=== PATIENT | female | born 1950 | race Caucasian/White ===

== ENCOUNTER → 2021-07-29 | Outpatient (CLI) | payer MEDICARE, OTHER ==
[~2021-07-29] MED LIST: DIATRIZOATE MEGL/DIATRIZOA SOD 30 ML BTL PO ONE; IOPAMIDOL 370 MG/ML 200 ML INFUS..BTL INJ ONE; SODIUM CHLORIDE 0.9% 50ML 50 ML ONE; SYNTHROID25 MCG PO; ZESTRIL20 MG PO
[2021-07-29 16:04] LABS: CREATININE, SERUM 1.05 mg/dL (0.57-1.11)
== END ==
LOC: CT 15:10
PROVIDERS: ATTEND Family Medicine
DX: R10.0 Acute abdomen (principal); K44.9 Diaphragmatic hernia without obstruction or gangrene
CPT/HCPCS: 36415; 74177; 82565; 84520; Q9967

== ENCOUNTER → 2021-08-07 | Outpatient (CLI) | payer MEDICARE, OTHER ==
[~2021-08-07] MED LIST changes: -DIATRIZOATE MEGL/DIATRIZOA SOD 30 ML BTL PO ONE; -IOPAMIDOL 370 MG/ML 200 ML INFUS..BTL INJ ONE; +LORAZEPAM INJ 2 MG/ML VIAL ONE; -SODIUM CHLORIDE 0.9% 50ML 50 ML ONE
== END ==
LOC: MRI 08:07
PROVIDERS: ATTEND Family Medicine
DX: M54.50 Low back pain, unspecified (principal)
CPT/HCPCS: 72148; J2060

== ENCOUNTER 2021-08-20 07:42 | Observation (INO) | payer MEDICARE, OTHER ==
[2021-08-18 14:56] LABS: BASOPHILS % 0.8 % (0.0-1.0); EOSINOPHILS # (AUTO) 0.2 (0.0-0.4); EOSINOPHILS % 4.1 % (0.0-6.0); HEMATOCRIT 29.7 % (34.2-44.1); HEMOGLOBIN 9.8 g/dL (12.0-16.0); LYMPHOCYTES # (AUTO) 1.2 (1.0-3.2); LYMPHOCYTES % 23.3 % (18.0-39.1); MONOCYTES # (AUTO) 0.6 (0.2-0.8); NEUTROPHILS # (AUTO) 3.2 (2.1-6.9); NEUTROPHILS % 59.4 % (38.7-80.0); PLATELET COUNT 278 x10e3/uL (140-360); RED BLOOD COUNT 3.16 x10e6/uL (3.6-5.1); RED CELL DISTRIBUTION WIDTH 13.9 % (11.7-14.4)
[2021-08-18 15:01] LABS: INR 0.9; PARTIAL THROMBOPLASTIN TIME 25.6 seconds (23.8-35.5); PROTHROMBIN TIME 12.8 seconds (11.9-14.5)
[2021-08-18 15:06] LABS: CALCIUM 8.6 mg/dL (8.4-10.2); CREATININE, SERUM 1.23 mg/dL (0.57-1.11)
[~2021-08-20] VITALS: Ht 170.2 cm; Wt 75.7 kg
[~2021-08-20 07:42] MED LIST changes: +AMBIEN5 MG PO; +HYDROCODON-ACE1 EAC9 PO; -LORAZEPAM INJ 2 MG/ML VIAL ONE; +PREMARIN0.625 MG PO
[2021-08-20] MEDS ORDERED: THROMBIN FOR SOLN 5,000 UNIT VIAL ONE (08:46)
[2021-08-20] MEDS ORDERED: Vancomycin IV 1 GM VIAL ONE (08:46)
[2021-08-20] MEDS ORDERED: LIDOCAINE 2%/ EPINEPHRINE 20ML MDV ONE (08:46)
[2021-08-20] MEDS ORDERED: SODIUM CHLORIDE 0.9% 50ML 100 ML ONE (09:16)
[2021-08-20] MEDS ORDERED: HYDROCODON-ACE1 EA12 PO (11:33)
[2021-08-20] MEDS ORDERED: Morphine 4mg Syringe 4 MG/ML INJ IM PRN (11:45)
[2021-08-20] MEDS ORDERED: MAGNESIUM/ALUMINUM/SIMETHICONE 30 ML UDC PO PRN (11:45)
[2021-08-20] MEDS ORDERED: OXYCODONE/ACETAMINOPHEN 5-325 1 EACH TABLET PO PRN (11:45)
[2021-08-20] MEDS ORDERED: HYDROCODONE/APAP 10MG-325MG TAB PO SCH (11:45)
[2021-08-20] MEDS ORDERED: PROMETHAZINE HCL (IM) 25 MG/ML VIAL IM PRN (11:45)
[2021-08-20] MEDS ORDERED: ZOLPIDEM TARTRATE 5 MG TAB PO PRN (11:45)
[2021-08-20] MEDS ORDERED: ONDANSETRON HCL INJ 2MG/ML 2ML 2 MG/ML VIAL IV PRN (11:45)
[2021-08-20] MEDS ORDERED: ZOLPIDEM TARTRATE 5 MG TAB PO SCH (11:45)
[2021-08-20] MEDS ORDERED: CARISOPRODOL 350 MG TAB PO PRN (11:45)
[2021-08-20] MEDS ORDERED: ACETAMINOPHEN 325 MG TAB PO PRN (11:45)
[2021-08-20] MEDS ORDERED: FENTANYL CITRATE/PF 100MCG/2 ML INJ ONE ×2 (11:54→13:08)
[2021-08-20] MEDS ORDERED: Morphine 4mg Syringe 4 MG/ML INJ ONE (12:25)
[2021-08-20] MEDS ORDERED: LIDOCAINE HCL 2% LOCAL INJ 5 ML SDV VIAL INJ ONE (12:40)
[2021-08-20] MEDS ORDERED: DEXAMETHASONE SOD PHOS INJ 4 MG/ML SDV ONE (12:40)
[2021-08-20] MEDS ORDERED: ONDANSETRON HCL INJ 2MG/ML 2ML 2 MG/ML VIAL ONE (12:40)
[2021-08-20] MEDS ORDERED: PROPOFOL IV EMULSION 10 MG/ML 20 ML VIAL ONE (12:40)
[2021-08-20] MEDS ORDERED: PHENYLEPHRINE HCL 1% 10 MG/ML VIAL ONE (12:40)
[2021-08-20] MEDS ORDERED: ROCURONIUM BROMIDE 10 MG/ML 5ML VIAL IV ONE (12:40)
[2021-08-20] MEDS ORDERED: ESMOLOL HCL 100MG/10ML 10 MG/ML VIAL ONE (12:40)
[2021-08-20] MEDS ORDERED: SEVOFLURANE INHAL SOLN 250 ML PEN BTL ONE (12:40)
[2021-08-20] MEDS ORDERED: POVIDONE IODINE 0.05% 0.05 % ML PO ONE (12:40)
[2021-08-20] MEDS ORDERED: HYDROMORPHONE 1MG/1ML INJ ONE (12:58)
[2021-08-20] MEDS ORDERED: MIDAZOLAM HCL 2 MG/2 ML VIAL ONE (13:08)
[2021-08-20 14:52] VITALS: BP 116/64
[2021-08-20 15:18] VITALS: BP 116/64
[2021-08-20] MEDS: LACTATED RINGER'S 1,000 ML IV SCH ×2 (15:42→22:02)
[2021-08-20] MEDS: HYDROMORPHONE 2MG/ML 2 MG/ML ML IV PRN ×2 (15:50→20:10)
[2021-08-20 16:08] VITALS: BP 103/57
[2021-08-20] MEDS: Cefazolin 1 GM in SODIUM CHLORIDE 0.9% 50ML 50 ML IV SCH (17:22)
[2021-08-20 21:32] VITALS: BP 103/59
[2021-08-21] VITALS: BP 114/67
[2021-08-21] MEDS: HYDROMORPHONE 2MG/ML 2 MG/ML ML IV PRN ×2 (00:28→05:04)
[2021-08-21] MEDS: Cefazolin 1 GM in SODIUM CHLORIDE 0.9% 50ML 50 ML IV SCH ×2 (01:07→09:06)
[2021-08-21 04:00] VITALS: BP 107/60
[2021-08-21] MEDS ORDERED: LEVOTHYROXINE SODIUM 25 MCG TABLET PO SCH (06:00)
[2021-08-21] MEDS: LACTATED RINGER'S 1,000 ML IV SCH (06:50)
[2021-08-21 08:17] VITALS: BP 87/60
[2021-08-21] MEDS ORDERED: ESTROGENS CONJUGATED 0.625 MG TAB PO SCH (09:00)
[2021-08-21] MEDS ORDERED: LISINOPRIL 20 MG TAB PO SCH (09:00)
[2021-08-21 09:13] VITALS: BP 87/60
[2021-08-21 11:30] VITALS: BP 101/60
== END 2021-08-21 11:43 | disposition home or self-care (01) ==
LOC: OR 07:42 → PACU V 11:33 → MED/SURG 13:34
PROVIDERS: ADMIT Neurological Surgery; ATTEND Neurological Surgery
DX: M48.062 Spinal stenosis, lumbar region with neurogenic claudication (principal); Z20.822 Contact with and (suspected) exposure to COVID-19
CPT/HCPCS: 36415; 63047; 63048; 71046; 72020; 80048; 85025; 85610; 85730; 86850; 86900; 88304; 88311; 93005; G0378 ×2; J0690 ×2; J1100; J1170 ×3; J2001 ×2; J2250; J2270; J2370; J2405; J2704; J3010; J3370; J7121 ×2; U0002

== ENCOUNTER 2022-01-15 12:18 | Emergency (ER) | payer MEDICARE, OTHER ==
[~2022-01-15] VITALS: Ht 170.2 cm; Wt 75.7 kg
[~2022-01-15 12:18] MED LIST changes: +HYDROCODON-ACE1 EA12 PO
[2022-01-15] MEDS ORDERED: HYDROCODONE/APAP 7.5MG-325MG 1 EA TAB PO PRN (16:00)
[2022-01-15 18:49] VITALS: BP 106/66
== END 2022-01-15 18:52 | disposition home or self-care (01) ==
LOC: ER 13:23
DX: M25.562 Pain in left knee (principal); M25.551 Pain in right hip; S30.0XXA Contusion of lower back and pelvis, initial encounter; R51.9 Headache, unspecified; E03.9 Hypothyroidism, unspecified; I12.9 Hypertensive chronic kidney disease with stage 1 through stage 4 chronic kidney disease, or unspecified chronic kidney disease; N18.9 Chronic kidney disease, unspecified; W18.39XA Other fall on same level, initial encounter; Y92.89 Other specified places as the place of occurrence of the external cause; Z88.8 Allergy status to other drugs, medicaments and biological substances; Z79.899 Other long term (current) drug therapy
CPT/HCPCS: 70450; 72110; 72125; 72192; 99284

== ENCOUNTER 2022-05-13 06:29 | Observation (INO) | payer MEDICARE, OTHER ==
[2022-05-12 12:07] LABS: BASOPHILS # (AUTO) 0.1 (0.0-0.1); BASOPHILS % 0.8 % (0.0-1.0); EOSINOPHILS # (AUTO) 0.5 (0.0-0.4); EOSINOPHILS % 5.1 % (0.0-6.0); HEMATOCRIT 30.9 % (34.2-44.1); HEMOGLOBIN 9.8 g/dL (12.0-16.0); LYMPHOCYTES # (AUTO) 0.9 (1.0-3.2); LYMPHOCYTES % 9.7 % (18.0-39.1); MEAN CORPUSCULAR HEMOGLOBIN 28.7 pg (28-32); MEAN CORPUSCULAR HGB CONC 31.7 g/dL (31-35); MEAN CORPUSCULAR VOLUME 90.6 fL (81-99); MONOCYTES # (AUTO) 0.8 (0.2-0.8); MONOCYTES % 8.6 % (4.4-11.3); NEUTROPHILS % 75.6 % (38.7-80.0); PLATELET COUNT 399 x10e3/uL (140-360); RED BLOOD COUNT 3.41 x10e6/uL (3.6-5.1); RED CELL DISTRIBUTION WIDTH 14.1 % (11.7-14.4)
[2022-05-12 12:27] LABS: ANION GAP 15.2 mmol/L (8-16); CREATININE, SERUM 1.07 mg/dL (0.57-1.11); POTASSIUM 4.2 mmol/L (3.5-5.1)
[2022-05-12 12:37] LABS: INR 0.92; PROTHROMBIN TIME 13.2 seconds (11.9-14.5)
[2022-05-12 12:38] LABS: PARTIAL THROMBOPLASTIN TIME 32.7 seconds (23.8-35.5)
[~2022-05-13] VITALS: Ht 170.2 cm; Wt 75.7 kg
[2022-05-13] MEDS ORDERED: BUPIVACAINE/EPINEPHRINE 0.5% 10 ML SDV INJ ONE (07:14)
[2022-05-13] MEDS ORDERED: THROMBIN FOR SOLN 5,000 UNIT VIAL ONE (07:14)
[2022-05-13] MEDS ORDERED: Vancomycin IV 1 GM VIAL ONE (07:14)
[2022-05-13] MEDS ORDERED: ACETAMINOPHEN 325 MG TAB PO PRN (11:15)
[2022-05-13] MEDS ORDERED: OXYCODONE/ACETAMINOPHEN 5-325 1 EACH TABLET PO PRN (11:15)
[2022-05-13] MEDS ORDERED: HYDROCODONE/APAP 10MG-325MG TAB PO SCH (11:15)
[2022-05-13] MEDS: LACTATED RINGER'S 1,000 ML IV SCH ×2 (11:15→18:05)
[2022-05-13] MEDS ORDERED: MAGNESIUM/ALUMINUM/SIMETHICONE 30 ML UDC PO PRN (11:15)
[2022-05-13] MEDS ORDERED: CARISOPRODOL 350 MG TAB PO PRN (11:15)
[2022-05-13] MEDS ORDERED: ZOLPIDEM TARTRATE 5 MG TAB PO PRN (11:15)
[2022-05-13] MEDS ORDERED: ONDANSETRON HCL INJ 2MG/ML 2ML 2 MG/ML VIAL IV PRN (11:15)
[2022-05-13] MEDS ORDERED: ZOLPIDEM TARTRATE 5 MG TAB PO SCH (11:15)
[2022-05-13] MEDS ORDERED: PROMETHAZINE HCL (IM) 25 MG/ML VIAL IM PRN (11:15)
[2022-05-13] MEDS ORDERED: MORPHINE SULFATE 5 MG/ML VIAL IM PRN (11:15)
[2022-05-13] MEDS ORDERED: HYDROCODON-ACE1 EA12 PO (11:18)
[2022-05-13] MEDS ORDERED: MIDAZOLAM HCL 2 MG/2 ML VIAL ONE (12:16)
[2022-05-13] MEDS ORDERED: Morphine 10mg syringe 10 MG/ML INJ ONE (12:16)
[2022-05-13] MEDS ORDERED: FENTANYL CITRATE/PF 100MCG/2 ML INJ ONE (12:16)
[2022-05-13 13:45] VITALS: BP 107/60
[2022-05-13 17:03] VITALS: BP 133/68
[2022-05-13] MEDS ORDERED: SEVOFLURANE INHAL SOLN 250 ML PEN BTL ONE (17:12)
[2022-05-13] MEDS ORDERED: DEXAMETHASONE SOD PHOS INJ 4 MG/ML SDV ONE (17:12)
[2022-05-13] MEDS ORDERED: GLYCOPYRROLATE INJ 0.2 MG/ML VIAL ONE (17:12)
[2022-05-13] MEDS ORDERED: LIDOCAINE HCL 2% LOCAL INJ 5 ML SDV VIAL INJ ONE (17:12)
[2022-05-13] MEDS ORDERED: PROPOFOL IV EMULSION 10 MG/ML 20 ML VIAL ONE (17:12)
[2022-05-13] MEDS ORDERED: POVIDONE IODINE 0.05% 0.05 % ML PO ONE (17:12)
[2022-05-13] MEDS ORDERED: ACETAMINOPHEN 1000 MG/100 ML IV ONE (17:12)
[2022-05-13] MEDS ORDERED: ONDANSETRON HCL INJ 2MG/ML 2ML 2 MG/ML VIAL ONE (17:12)
[2022-05-13] MEDS: HYDROCODONE/APAP 7.5MG-325MG 1 EA TAB PO PRN (18:05)
[2022-05-13 20:00] VITALS: BP 103/68
[2022-05-13] MEDS: HYDROMORPHONE 2MG/ML 2 MG/ML ML IV PRN (20:06)
[2022-05-13 23:28] VITALS: BP 103/68
[2022-05-14] VITALS: BP 90/50
[2022-05-14] MEDS: HYDROMORPHONE 2MG/ML 2 MG/ML ML IV PRN ×2 (00:10→04:24)
[2022-05-14 04:00] VITALS: BP 104/59
[2022-05-14] MEDS ORDERED: LEVOTHYROXINE SODIUM 125 MCG TAB PO SCH (06:00)
[2022-05-14] MEDS: HYDROCODONE/APAP 7.5MG-325MG 1 EA TAB PO PRN (08:30)
[2022-05-14 08:52] VITALS: BP 117/73
[2022-05-14 08:57] VITALS: BP 117/73
[2022-05-14] MEDS ORDERED: LISINOPRIL 20 MG TAB PO SCH (09:00)
[2022-05-14] MEDS ORDERED: ESTROGENS CONJUGATED 0.625 MG TAB PO SCH (09:00)
== END 2022-05-14 09:59 | disposition home or self-care (01) ==
LOC: OR 06:29 → PACU V 11:54 → MED/SURG2 14:08
PROVIDERS: ADMIT Neurological Surgery; ATTEND Neurological Surgery
DX: M48.062 Spinal stenosis, lumbar region with neurogenic claudication (principal); M19.90 Unspecified osteoarthritis, unspecified site; I10 Essential (primary) hypertension; E03.9 Hypothyroidism, unspecified; R12 Heartburn; Z20.822 Contact with and (suspected) exposure to COVID-19
CPT/HCPCS: 0223U; 36415; 63056; 71046; 72020; 80048; 85025; 85610; 85730; 86850; 86900; 88304; 88311; 93005; G0378 ×2; J0131; J0690 ×2; J1100; J1170 ×2; J2001; J2405; J2704; J3370; J7121; J2250; J2270; J3010

== ENCOUNTER 2022-12-24 11:08 | Inpatient (IN) | payer MEDICARE, OTHER ==
[~2022-12-24] VITALS: Ht 170.2 cm; Wt 75.7 kg
[2022-12-24 12:39] LABS: BASOPHILS % 0.5 % (0.0-1.0); EOSINOPHILS # (AUTO) 0.7 (0.0-0.4); EOSINOPHILS % 9.7 % (0.0-6.0); HEMATOCRIT 26.8 % (34.2-44.1); HEMOGLOBIN 9.1 g/dL (12.0-16.0); LYMPHOCYTES # (AUTO) 0.7 (1.0-3.2); LYMPHOCYTES % 9.2 % (18.0-39.1); MEAN CORPUSCULAR HEMOGLOBIN 29.3 pg (28-32); MEAN CORPUSCULAR VOLUME 86.2 fL (81-99); MONOCYTES # (AUTO) 0.5 (0.2-0.8); MONOCYTES % 7.1 % (4.4-11.3); NEUTROPHILS # (AUTO) 5.6 (2.1-6.9); NEUTROPHILS % 73.1 % (38.7-80.0); PLATELET COUNT 267 x10e3/uL (140-360); RED BLOOD COUNT 3.11 x10e6/uL (3.6-5.1); RED CELL DISTRIBUTION WIDTH 15.6 % (11.7-14.4)
[2022-12-24 13:02] LABS: ALBUMIN 3.1 g/dL (3.5-5.0); ANION GAP 12.3 mmol/L (8-16); CALCIUM 8.6 mg/dL (8.4-10.2); CREATININE, SERUM 1.09 mg/dL (0.57-1.11); POTASSIUM 4.3 mmol/L (3.5-5.1)
[2022-12-24] MEDS: ONDANSETRON HCL INJ 2MG/ML 2ML 2 MG/ML VIAL IV PRN ×2 (14:01→15:20)
[2022-12-24] MEDS: SODIUM CHLORIDE 0.9% 1000ML 1,000 ML IV SCH (14:01)
[2022-12-24] MEDS: SODIUM CHLORIDE 1 GM TAB PO SCH ×2 (15:20→20:54)
[2022-12-24 15:38] LABS: CLARITY,URINE SL CLOUDY (CLEAR); COLOR,URINE YELLOW (YELLOW); KETONES,URINE NEGATIVE (NEGATIVE); LEUKOCYTE ESTERASE ,URINE SMALL (NEGATIVE); NITRITE,URINE NEGATIVE (NEGATIVE); PROTEIN,URINE DIPSTICK NEGATIVE (NEGATIVE); URINE UROBILINOGEN 0.2 mg/dL (0.2 - 1)
[2022-12-24 15:49] LABS: BACTERIA,URINE MANY /HPF
[2022-12-24 15:50] LABS: EPITHELIAL CELLS,URINE MODERATE /LPF
[2022-12-24] MEDS: HYDROCODONE/APAP 10MG-325MG TAB PO PRN (20:52)
[2022-12-24 21:00] VITALS: BP 124/74; PULSE 76; TEMP 97.3; O2SAT 99
[2022-12-24] MEDS ORDERED: ZOLPIDEM TARTRATE 5 MG TAB PO PRN (21:00)
[2022-12-24 23:00] VITALS: BP 109/74; PULSE 76; RESP 17; TEMP 97.4; O2SAT 100
[2022-12-25] VITALS (8 sets, daily range): BP systolic 109–132; BP diastolic 50–77; PULSE 76–103; RESP 17–20; TEMP 97.4–97.7; O2SAT 98–100
[2022-12-25] MEDS: SODIUM CHLORIDE 0.9% 1000ML 1,000 ML IV SCH ×2 (03:14→08:15)
[2022-12-25] MEDS: HYDROCODONE/APAP 10MG-325MG TAB PO PRN ×3 (04:59→20:34)
[2022-12-25] MEDS ORDERED: CIPRO500 MG PO (05:02)
[2022-12-25] MEDS ORDERED: MIRAPEX0.5 MG PO (05:07)
[2022-12-25 05:52] LABS: ALBUMIN 3.1 g/dL (3.5-5.0); ANION GAP 13.4 mmol/L (8-16); CALCIUM 8.8 mg/dL (8.4-10.2); CREATININE, SERUM 1.05 mg/dL (0.57-1.11); POTASSIUM 4.4 mmol/L (3.5-5.1)
[2022-12-25] MEDS: SODIUM CHLORIDE 1 GM TAB PO SCH ×3 (08:14→20:28)
[2022-12-25] MEDS: LISINOPRIL 20 MG TAB PO SCH (08:14)
[2022-12-25] MEDS ORDERED: LEVOTHYROXINE SODIUM 25 MCG TABLET PO SCH (09:00)
[2022-12-25] MEDS ORDERED: DOCUSATE SODIUM 100 MG CAP PO ONE (10:15)
[2022-12-25] MEDS: ESTROGENS CONJUGATED 0.625 MG TAB PO SCH (10:52)
[2022-12-25] MEDS: ONDANSETRON HCL INJ 2MG/ML 2ML 2 MG/ML VIAL IV PRN (14:29)
[2022-12-26 00:30] VITALS: BP 99/48; PULSE 107; RESP 17; TEMP 98.4; O2SAT 97
[2022-12-26] MEDS: ONDANSETRON HCL INJ 2MG/ML 2ML 2 MG/ML VIAL IV PRN (01:18)
[2022-12-26 04:31] VITALS: BP 121/72; PULSE 85; RESP 18; TEMP 97.8; O2SAT 97
[2022-12-26 07:48] VITALS: BP 122/67; PULSE 91; RESP 16; TEMP 98.4; O2SAT 100
[2022-12-26 07:48] LABS: ANION GAP 11.8 mmol/L (8-16); CALCIUM 8.5 mg/dL (8.4-10.2); CREATININE, SERUM 1.01 mg/dL (0.57-1.11); POTASSIUM 3.8 mmol/L (3.5-5.1)
[2022-12-26] MEDS: LISINOPRIL 20 MG TAB PO SCH (08:02)
[2022-12-26] MEDS: SODIUM CHLORIDE 1 GM TAB PO SCH (08:02)
[2022-12-26] MEDS: ESTROGENS CONJUGATED 0.625 MG TAB PO SCH (08:08)
[2022-12-26 08:09] VITALS: BP 122/67; PULSE 91; RESP 16; TEMP 98.4; O2SAT 100
[2022-12-26 11:31] VITALS: BP 139/77; PULSE 86; RESP 18; TEMP 98; O2SAT 100
[2022-12-26] MEDS ORDERED: SODIUM CHLORI1000 MG PO (13:24)
[2022-12-26] MEDS ORDERED: ONDANSETRON HCL 4 MG ORAL DISINTEGRATING TAB PO PRN (13:30)
== END 2022-12-26 14:04 | disposition home or self-care (01) | DRG 645 ==
LOC: ER 11:26 → ERHOLD 13:10 → MED/SURG 22:56
PROVIDERS: ADMIT Family Medicine; ATTEND Family Medicine
DX: E22.2 Syndrome of inappropriate secretion of antidiuretic hormone (principal); I12.9 Hypertensive chronic kidney disease with stage 1 through stage 4 chronic kidney disease, or unspecified chronic kidney disease; N18.31 Chronic kidney disease, stage 3a; E03.9 Hypothyroidism, unspecified; G25.81 Restless legs syndrome; G89.29 Other chronic pain; M81.0 Age-related osteoporosis without current pathological fracture; M48.061 Spinal stenosis, lumbar region without neurogenic claudication; R29.6 Repeated falls; Z20.822 Contact with and (suspected) exposure to COVID-19; Z96.659 Presence of unspecified artificial knee joint
CPT/HCPCS: 36415; 71045; 80048; 80053; 81001; 84550; 85025; 93005; 96361; 96365; 96366; 99284; J2405; J7030

== ENCOUNTER → 2024-05-16 | Outpatient (REF) | payer MEDICARE, OTHER ==
[~2024-05-16] MED LIST changes: +CIPRO500 MG PO; +MIRAPEX0.5 MG PO; +SODIUM CHLORI1000 MG PO
== END ==
LOC: CT 10:32
PROVIDERS: ATTEND Orthopaedic Surgery
DX: M54.16 Radiculopathy, lumbar region (principal)
CPT/HCPCS: 72131

== ENCOUNTER 2025-03-10 17:05 | Emergency (ER) | payer MEDICARE, OTHER ==
[~2025-03-10] VITALS: Ht 170.2 cm; Wt 75.7 kg
[2025-03-10 18:25] LABS: CORONAVIRUS COVID-19 AG NEGATIVE (NEGATIVE)
[2025-03-10] MEDS: ONDANSETRON HCL 4 MG ORAL DISINTEGRATING TAB PO ONE (19:16)
[2025-03-10] MEDS ORDERED: AZITHROMYCIN250 MG PO (19:48)
[2025-03-10] MEDS ORDERED: ONDANSETRON ODT4 MG SL (19:48)
[2025-03-10] MEDS ORDERED: MEDROL4 M2 PO (19:48)
[2025-03-10 19:55] VITALS: PULSE 86; RESP 20; TEMP 98.2
[2025-03-10 20:25] VITALS: BP 136/89; PULSE 86; RESP 20; TEMP 98.2; O2SAT 97
== END 2025-03-10 20:15 | disposition home or self-care (01) ==
LOC: ER 18:02
DX: R05.9 Cough, unspecified (principal); J20.9 Acute bronchitis, unspecified; R51.9 Headache, unspecified; R11.0 Nausea; I12.9 Hypertensive chronic kidney disease with stage 1 through stage 4 chronic kidney disease, or unspecified chronic kidney disease; N18.9 Chronic kidney disease, unspecified; E03.9 Hypothyroidism, unspecified; M54.9 Dorsalgia, unspecified; G89.29 Other chronic pain; Z11.52 Encounter for screening for COVID-19
CPT/HCPCS: 71045; 87426; 99284; Q0162